=== PATIENT | male | born 1955 | race Caucasian/White ===

== ENCOUNTER 2022-09-20 16:56 | Inpatient (IN) | payer MEDICARE, SELFPAY ==
[2022-09-20 18:47] LABS: #Eosinphils 0.1 thou/uL (0.0-0.7); #Lymphocytes 0.8 thou/uL (1.20-3.40); #Monocytes 0.4 thou/uL (0.11-0.59); #Neutrophils 3.1 thou/uL (1.40-6.50); %Basophils 0.4 % (0.0-1.0); %Lymphocytes 18.1 % (21.0-51.0); %Monocytes 9.1 % (0.0-10.0); %Neutrophils 69.4 % (42.0-75.0); Hemoglobin 8.3 g/dL (14.0-18.0); Mean Corpuscular HGB CONC 30.6 g/dL (32.0-36.0); Mean Corpuscular Hemoglobin 20.6 pg (27.0-31.0); Mean Corpuscular Volume 67.1 fl (78.0-98.0); Mean Platelet Volume 10.5 fL (7.4-10.4); Platelet Count 230 10x3/uL (130-400); RBC Distribution Width 17.2 % (11.5-14.5); Red Blood Cell (RBC) Count 4.06 mill/uL (4.70-6.10); White Blood Cell (WBC) Count 4.5 10x3/uL (4.8-10.8)
[2022-09-20 19:06] LABS: Anisocytosis SLIGHT = 6-15 cells (100X) (0-5/hpf); Hypochromia SLIGHT = 6-15 cells (100X) (0-5/hpf); MDiff Complete? YES; Microcytosis SLIGHT = 6-15 cells (100X) (0-5/hpf); Ovalocytes SLIGHT = 2-5 cells (100X) (0-1/hpf); Platelet Morphology Comment Appears Adequate; Polychromasia SLIGHT = 2-3 cells (100X) (0-2/hpf); Target Cells SLIGHT = 2-5 cells (100X) (0-1/hpf)
[2022-09-20 19:12] LABS: ALT (SGPT) 8 U/L (8-55); AST (SGOT) 10 U/L (5-34); Albumin 3.1 g/dL (3.4-4.8); Alkaline Phosphatase 73 U/L (40-110); Anion Gap 11 mmol/L (10-20); BUN (Urea Nitrogen) 14 mg/dL (8.4-25.7); Bilirubin, Total 0.5 mg/dL (0.2-1.2); Calc. Creatinine Clearance 0 mL/min (70-130); Calcium 8.2 mg/dL (7.8-10.44); Carbon Dioxide 27 mmol/L (23-31); Chloride 104 mmol/L (98-107); Estimated GFR 54; Globulin 3.9 g/dL (2.4-3.5); Glucose 112 mg/dL (80-115); Potassium 4.5 mmol/L (3.5-5.1); Sodium 137 mmol/L (136-145)
[2022-09-20] MEDS ORDERED: Morphine 4 MG/ML VIAL ONE (21:26)
[2022-09-20] MEDS ORDERED: Ketorolac Tromethamine 30 MG/ML VIAL ONE (21:27)
[2022-09-20] MEDS ORDERED: Enoxaparin Sodium 100 MG/ML SYRINGE ONE (21:27)
[2022-09-20] MEDS ORDERED: Bisacodyl 5 MG TAB PO PRN (23:29)
[2022-09-20] MEDS ORDERED: Senokot S 8.6-50 MG TAB PO PRN (23:29)
[2022-09-20] MEDS ORDERED: Acetaminophen 325 MG TAB PO PRN (23:41)
[2022-09-21] MEDS ORDERED: Doxycycline 100 MG CAP PO SCH (00:45)
[2022-09-21] MEDS ORDERED: Sodium Chloride 0.9% 1,000 ML IV SCH (00:45)
[2022-09-21 03:56] VITALS: BMI 33.7
[2022-09-21] MEDS: Morphine 4 MG/ML VIAL SLOW IVP PRN ×3 (04:00→22:11)
[2022-09-21 04:16] LABS: #Eosinphils 0.2 thou/uL (0.0-0.7); #Monocytes 0.5 thou/uL (0.11-0.59); %Eosinophils 4.5 % (0.0-10.0); %Lymphocytes 26.7 % (21.0-51.0); %Monocytes 13.3 % (0.0-10.0); %Neutrophils 55.5 % (42.0-75.0); Hemoglobin 8.4 g/dL (14.0-18.0); Mean Corpuscular HGB CONC 29.6 g/dL (32.0-36.0); Mean Corpuscular Hemoglobin 20.2 pg (27.0-31.0); Mean Corpuscular Volume 68.4 fl (78.0-98.0); Mean Platelet Volume 11.3 fL (7.4-10.4); Platelet Count 208 10x3/uL (130-400); RBC Distribution Width 17.2 % (11.5-14.5); Red Blood Cell (RBC) Count 4.13 mill/uL (4.70-6.10); White Blood Cell (WBC) Count 3.6 10x3/uL (4.8-10.8)
[2022-09-21 04:27] LABS: ALT (SGPT) Less than 7 U/L (8-55); AST (SGOT) 11 U/L (5-34); Alkaline Phosphatase 62 U/L (40-110); Anion Gap 11 mmol/L (10-20); BUN (Urea Nitrogen) 13 mg/dL (8.4-25.7); Bilirubin, Total 0.4 mg/dL (0.2-1.2); Calc. Creatinine Clearance 78 mL/min (70-130); Calcium 7.9 mg/dL (7.8-10.44); Carbon Dioxide 25 mmol/L (23-31); Chloride 107 mmol/L (98-107); Estimated GFR 57; Globulin 4.1 g/dL (2.4-3.5); Glucose 91 mg/dL (80-115); Potassium 4.3 mmol/L (3.5-5.1); Protein, Total 7.1 g/dL (5.8-8.1); Sodium 139 mmol/L (136-145)
[2022-09-21] MEDS ORDERED: FLU VACC QS2022-23(65YR UP)/PF 240 MCG/0.7 ML SYRINGE IM ONE (09:00)
[2022-09-21] MEDS: Enoxaparin Sodium 120 MG/0.8 ML SYRINGE SC SCH ×2 (12:30→20:23)
[2022-09-21] MEDS: Doxycycline 100 MG CAP PO SCH ×2 (12:30→20:23)
[2022-09-21] MEDS: sulfaSALAzine 500 MG TAB PO SCH (12:30)
[2022-09-21] MEDS: cefTRIAXone\\ROCEPHIN 1 GM in Sodium Chloride 0.9% 100 ML IVPB SCH (15:42)
[2022-09-21] MEDS: Ferrous Sulfate 325 MG TAB PO SCH (15:43)
[2022-09-21] MEDS: HYDROcodone/Acetaminophen 10/325 mg Tablet PO PRN (20:24)
[2022-09-22 04:24] LABS: Anion Gap 12 mmol/L (10-20); BUN (Urea Nitrogen) 14 mg/dL (8.4-25.7); Calc. Creatinine Clearance 81 mL/min (70-130); Calcium 8.4 mg/dL (7.8-10.44); Carbon Dioxide 25 mmol/L (23-31); Chloride 104 mmol/L (98-107); Estimated GFR 60; Glucose 85 mg/dL (80-115); Potassium 4.2 mmol/L (3.5-5.1); Sodium 137 mmol/L (136-145)
[2022-09-22 04:28] LABS: #Eosinphils 0.2 thou/uL (0.0-0.7); #Lymphocytes 1.1 thou/uL (1.20-3.40); #Monocytes 0.3 thou/uL (0.11-0.59); #Neutrophils 1.9 thou/uL (1.40-6.50); %Basophils 0.5 % (0.0-1.0); %Lymphocytes 31.1 % (21.0-51.0); %Monocytes 9.8 % (0.0-10.0); %Neutrophils 53.7 % (42.0-75.0); Mean Corpuscular HGB CONC 29.6 g/dL (32.0-36.0); Mean Corpuscular Volume 67.5 fl (78.0-98.0); Mean Platelet Volume 11.4 fL (7.4-10.4); Platelet Count 223 10x3/uL (130-400); RBC Distribution Width 17.1 % (11.5-14.5); Red Blood Cell (RBC) Count 3.99 mill/uL (4.70-6.10); White Blood Cell (WBC) Count 3.5 10x3/uL (4.8-10.8)
[2022-09-22] MEDS: Enoxaparin Sodium 120 MG/0.8 ML SYRINGE SC SCH (10:41)
[2022-09-22] MEDS: Doxycycline 100 MG CAP PO SCH ×2 (10:41→21:00)
[2022-09-22] MEDS: sulfaSALAzine 500 MG TAB PO SCH (10:41)
[2022-09-22] MEDS: Ferrous Sulfate 325 MG TAB PO SCH ×2 (10:41→16:40)
[2022-09-22] MEDS: HYDROcodone/Acetaminophen 10/325 mg Tablet PO PRN (10:58)
[2022-09-22] MEDS: cefTRIAXone\\ROCEPHIN 1 GM in Sodium Chloride 0.9% 100 ML IVPB SCH (16:39)
[2022-09-22] MEDS: Apixaban 5 MG TAB PO SCH (21:00)
[2022-09-22] MEDS: Morphine 4 MG/ML VIAL SLOW IVP PRN (21:02)
[2022-09-23] MEDS: Morphine 4 MG/ML VIAL SLOW IVP PRN (02:20)
[2022-09-23 04:02] LABS: #Eosinphils 0.2 thou/uL (0.0-0.7); #Lymphocytes 0.9 thou/uL (1.20-3.40); #Monocytes 0.3 thou/uL (0.11-0.59); #Neutrophils 2.2 thou/uL (1.40-6.50); %Basophils 0.8 % (0.0-1.0); %Eosinophils 4.9 % (0.0-10.0); %Lymphocytes 24.2 % (21.0-51.0); %Monocytes 9.2 % (0.0-10.0); %Neutrophils 60.9 % (42.0-75.0); Hemoglobin 8.1 g/dL (14.0-18.0); Mean Corpuscular HGB CONC 31.3 g/dL (32.0-36.0); Mean Corpuscular Hemoglobin 20.9 pg (27.0-31.0); Mean Corpuscular Volume 66.8 fl (78.0-98.0); Mean Platelet Volume 10.6 fL (7.4-10.4); Platelet Count 238 10x3/uL (130-400); RBC Distribution Width 16.6 % (11.5-14.5); Red Blood Cell (RBC) Count 3.87 mill/uL (4.70-6.10); White Blood Cell (WBC) Count 3.5 10x3/uL (4.8-10.8)
[2022-09-23 04:21] LABS: Anion Gap 12 mmol/L (10-20); BUN (Urea Nitrogen) 13 mg/dL (8.4-25.7); Calc. Creatinine Clearance 92 mL/min (70-130); Calcium 8.7 mg/dL (7.8-10.44); Carbon Dioxide 26 mmol/L (23-31); Chloride 102 mmol/L (98-107); Estimated GFR 70; Glucose 86 mg/dL (80-115); Potassium 4.4 mmol/L (3.5-5.1); Sodium 136 mmol/L (136-145)
[2022-09-23] MEDS: Doxycycline 100 MG CAP PO SCH ×2 (09:20→20:40)
[2022-09-23] MEDS: Ferrous Sulfate 325 MG TAB PO SCH ×2 (09:20→16:00)
[2022-09-23] MEDS: Apixaban 5 MG TAB PO SCH ×2 (09:20→20:39)
[2022-09-23] MEDS: HYDROcodone/Acetaminophen 10/325 mg Tablet PO PRN ×3 (09:20→20:38)
[2022-09-23] MEDS: sulfaSALAzine 500 MG TAB PO SCH (09:35)
[2022-09-23] MEDS: cefTRIAXone\\ROCEPHIN 1 GM in Sodium Chloride 0.9% 100 ML IVPB SCH (15:54)
[2022-09-23] MEDS: Senokot S 8.6-50 MG TAB PO SCH (20:39)
[2022-09-24 05:09] LABS: #Eosinphils 0.2 thou/uL (0.0-0.7); #Lymphocytes 0.5 thou/uL (1.20-3.40); #Monocytes 0.3 thou/uL (0.11-0.59); #Neutrophils 3.4 thou/uL (1.40-6.50); %Basophils 0.4 % (0.0-1.0); %Eosinophils 3.4 % (0.0-10.0); %Lymphocytes 12.3 % (21.0-51.0); %Monocytes 7.6 % (0.0-10.0); %Neutrophils 76.3 % (42.0-75.0); Hemoglobin 8.3 g/dL (14.0-18.0); Mean Corpuscular HGB CONC 30.1 g/dL (32.0-36.0); Mean Corpuscular Hemoglobin 20.1 pg (27.0-31.0); Mean Corpuscular Volume 66.9 fl (78.0-98.0); Mean Platelet Volume 11.6 fL (7.4-10.4); Platelet Count 245 10x3/uL (130-400); RBC Distribution Width 16.9 % (11.5-14.5); Red Blood Cell (RBC) Count 4.14 mill/uL (4.70-6.10); White Blood Cell (WBC) Count 4.4 10x3/uL (4.8-10.8)
[2022-09-24 05:27] LABS: Anion Gap 12 mmol/L (10-20); BUN (Urea Nitrogen) 13 mg/dL (8.4-25.7); Calc. Creatinine Clearance 98 mL/min (70-130); Calcium 8.8 mg/dL (7.8-10.44); Carbon Dioxide 27 mmol/L (23-31); Chloride 100 mmol/L (98-107); Estimated GFR 75; Glucose 91 mg/dL (80-115); Magnesium 1.6 mg/dL (1.6-2.6); Potassium 4.7 mmol/L (3.5-5.1); Sodium 134 mmol/L (136-145)
[2022-09-24] MEDS: Doxycycline 100 MG CAP PO SCH ×2 (08:59→20:49)
[2022-09-24] MEDS: Senokot S 8.6-50 MG TAB PO SCH ×2 (08:59→20:49)
[2022-09-24] MEDS: sulfaSALAzine 500 MG TAB PO SCH (08:59)
[2022-09-24] MEDS: Ferrous Sulfate 325 MG TAB PO SCH ×2 (08:59→17:06)
[2022-09-24] MEDS: Apixaban 5 MG TAB PO SCH ×2 (08:59→20:49)
[2022-09-24] MEDS: HYDROcodone/Acetaminophen 10/325 mg Tablet PO PRN ×3 (09:00→20:48)
[2022-09-24] MEDS ORDERED: Magnesium 2 GM/50 ML(in water) 2 GM in Premix Bag 1 BAG IVPB SCH (09:45)
[2022-09-24] MEDS ORDERED: Polyethylene Glycol 3350 17 GM Packet PO SCH (09:45)
[2022-09-24] MEDS: cefTRIAXone\\ROCEPHIN 1 GM in Sodium Chloride 0.9% 100 ML IVPB SCH (14:37)
[2022-09-25 05:20] LABS: Anion Gap 11 mmol/L (10-20); BUN (Urea Nitrogen) 15 mg/dL (8.4-25.7); Calc. Creatinine Clearance 84 mL/min (70-130); Carbon Dioxide 27 mmol/L (23-31); Chloride 99 mmol/L (98-107); Estimated GFR 64; Glucose 82 mg/dL (80-115); Potassium 4.6 mmol/L (3.5-5.1); Sodium 132 mmol/L (136-145)
[2022-09-25] MEDS: Doxycycline 100 MG CAP PO SCH ×2 (10:12→21:04)
[2022-09-25] MEDS: Polyethylene Glycol 3350 17 GM Packet PO SCH (10:12)
[2022-09-25] MEDS: Apixaban 5 MG TAB PO SCH ×2 (10:12→21:03)
[2022-09-25] MEDS: Ferrous Sulfate 325 MG TAB PO SCH ×2 (10:12→16:04)
[2022-09-25] MEDS: Senokot S 8.6-50 MG TAB PO SCH ×2 (10:12→21:03)
[2022-09-25] MEDS: HYDROcodone/Acetaminophen 10/325 mg Tablet PO PRN ×2 (10:15→21:04)
[2022-09-25] MEDS: sulfaSALAzine 500 MG TAB PO SCH (10:20)
[2022-09-25] MEDS: cefTRIAXone\\ROCEPHIN 1 GM in Sodium Chloride 0.9% 100 ML IVPB SCH (16:04)
[2022-09-26] MEDS: Polyethylene Glycol 3350 17 GM Packet PO SCH (08:39)
[2022-09-26] MEDS: Doxycycline 100 MG CAP PO SCH ×2 (08:40→20:25)
[2022-09-26] MEDS: Senokot S 8.6-50 MG TAB PO SCH ×2 (08:40→20:26)
[2022-09-26] MEDS: Ferrous Sulfate 325 MG TAB PO SCH ×2 (08:40→16:59)
[2022-09-26] MEDS: Apixaban 5 MG TAB PO SCH ×2 (08:40→20:26)
[2022-09-26] MEDS: HYDROcodone/Acetaminophen 10/325 mg Tablet PO PRN ×3 (08:45→20:25)
[2022-09-26] MEDS: sulfaSALAzine 500 MG TAB PO SCH (11:48)
[2022-09-26 14:14] LABS: #Eosinphils 0.1 thou/uL (0.0-0.7); #Lymphocytes 0.8 thou/uL (1.20-3.40); #Monocytes 0.4 thou/uL (0.11-0.59); #Neutrophils 2.5 thou/uL (1.40-6.50); %Basophils 0.1 % (0.0-1.0); %Eosinophils 3.3 % (0.0-10.0); %Lymphocytes 21.3 % (21.0-51.0); %Monocytes 10.8 % (0.0-10.0); %Neutrophils 64.4 % (42.0-75.0); Hemoglobin 8.1 g/dL (14.0-18.0); Mean Corpuscular HGB CONC 30.3 g/dL (32.0-36.0); Mean Corpuscular Hemoglobin 20.1 pg (27.0-31.0); Mean Corpuscular Volume 66.5 fl (78.0-98.0); Mean Platelet Volume 11.1 fL (7.4-10.4); Platelet Count 271 10x3/uL (130-400); RBC Distribution Width 16.7 % (11.5-14.5); Red Blood Cell (RBC) Count 4.04 mill/uL (4.70-6.10); White Blood Cell (WBC) Count 3.9 10x3/uL (4.8-10.8)
[2022-09-26 14:25] LABS: Anion Gap 14 mmol/L (10-20); BUN (Urea Nitrogen) 22 mg/dL (8.4-25.7); Calc. Creatinine Clearance 80 mL/min (70-130); Carbon Dioxide 26 mmol/L (23-31); Chloride 96 mmol/L (98-107); Estimated GFR 59; Glucose 93 mg/dL (80-115); Potassium 4.8 mmol/L (3.5-5.1); Sodium 131 mmol/L (136-145)
[2022-09-26] MEDS: cefTRIAXone\\ROCEPHIN 1 GM in Sodium Chloride 0.9% 100 ML IVPB SCH (16:59)
[2022-09-27] MEDS: HYDROcodone/Acetaminophen 10/325 mg Tablet PO PRN ×3 (00:27→21:36)
[2022-09-27] MEDS: Senokot S 8.6-50 MG TAB PO SCH ×2 (09:52→21:34)
[2022-09-27] MEDS: Polyethylene Glycol 3350 17 GM Packet PO SCH (09:52)
[2022-09-27] MEDS: sulfaSALAzine 500 MG TAB PO SCH (09:52)
[2022-09-27] MEDS: Apixaban 5 MG TAB PO SCH ×2 (09:52→21:34)
[2022-09-27] MEDS: Doxycycline 100 MG CAP PO SCH ×2 (09:52→21:34)
[2022-09-27] MEDS: Ferrous Sulfate 325 MG TAB PO SCH ×2 (09:52→16:55)
[2022-09-27 12:42] LABS: #Eosinphils 0.2 thou/uL (0.0-0.7); #Monocytes 0.5 thou/uL (0.11-0.59); #Neutrophils 2.9 thou/uL (1.40-6.50); %Basophils 0.6 % (0.0-1.0); %Lymphocytes 21.7 % (21.0-51.0); %Monocytes 9.8 % (0.0-10.0); %Neutrophils 63.9 % (42.0-75.0); Hemoglobin 9.4 g/dL (14.0-18.0); Mean Corpuscular HGB CONC 31.4 g/dL (32.0-36.0); Mean Corpuscular Hemoglobin 20.6 pg (27.0-31.0); Mean Corpuscular Volume 65.6 fl (78.0-98.0); Mean Platelet Volume 11.2 fL (7.4-10.4); Platelet Count 304 10x3/uL (130-400); RBC Distribution Width 16.8 % (11.5-14.5); Red Blood Cell (RBC) Count 4.55 mill/uL (4.70-6.10); White Blood Cell (WBC) Count 4.6 10x3/uL (4.8-10.8)
[2022-09-27 12:57] LABS: Anion Gap 15 mmol/L (10-20); BUN (Urea Nitrogen) 24 mg/dL (8.4-25.7); Calc. Creatinine Clearance 76 mL/min (70-130); Calcium 9.2 mg/dL (7.8-10.44); Carbon Dioxide 25 mmol/L (23-31); Chloride 97 mmol/L (98-107); Estimated GFR 57; Glucose 103 mg/dL (80-115); Potassium 4.9 mmol/L (3.5-5.1); Sodium 132 mmol/L (136-145)
[2022-09-27] MEDS: cefTRIAXone\\ROCEPHIN 1 GM in Sodium Chloride 0.9% 100 ML IVPB SCH (16:01)
[2022-09-28] MEDS: Apixaban 5 MG TAB PO SCH ×2 (09:05→21:28)
[2022-09-28] MEDS: Senokot S 8.6-50 MG TAB PO SCH ×2 (09:05→21:29)
[2022-09-28] MEDS: Ferrous Sulfate 325 MG TAB PO SCH ×2 (09:05→16:27)
[2022-09-28] MEDS: sulfaSALAzine 500 MG TAB PO SCH (09:05)
[2022-09-28] MEDS: HYDROcodone/Acetaminophen 10/325 mg Tablet PO PRN ×2 (09:06→21:29)
[2022-09-28] MEDS: Polyethylene Glycol 3350 17 GM Packet PO SCH (09:06)
[2022-09-28] MEDS: Doxycycline 100 MG CAP PO SCH ×2 (09:06→21:29)
[2022-09-28 10:37] LABS: Anion Gap 17 mmol/L (10-20); BUN (Urea Nitrogen) 29 mg/dL (8.4-25.7); Calc. Creatinine Clearance 68 mL/min (70-130); Calcium 9.1 mg/dL (7.8-10.44); Carbon Dioxide 23 mmol/L (23-31); Chloride 97 mmol/L (98-107); Estimated GFR 50; Glucose 119 mg/dL (80-115); Potassium 5.1 mmol/L (3.5-5.1); Sodium 132 mmol/L (136-145)
[2022-09-28] MEDS: cefTRIAXone\\ROCEPHIN 1 GM in Sodium Chloride 0.9% 100 ML IVPB SCH (16:27)
[2022-09-29 07:15] LABS: #Eosinphils 0.1 thou/uL (0.0-0.7); #Lymphocytes 1.1 thou/uL (1.20-3.40); #Monocytes 0.5 thou/uL (0.11-0.59); #Neutrophils 2.7 thou/uL (1.40-6.50); %Basophils 0.4 % (0.0-1.0); %Eosinophils 3.2 % (0.0-10.0); %Lymphocytes 24.3 % (21.0-51.0); %Neutrophils 60.1 % (42.0-75.0); Hemoglobin 8.8 g/dL (14.0-18.0); Mean Corpuscular HGB CONC 31.2 g/dL (32.0-36.0); Mean Corpuscular Hemoglobin 20.5 pg (27.0-31.0); Mean Corpuscular Volume 65.7 fl (78.0-98.0); Mean Platelet Volume 10.4 fL (7.4-10.4); Platelet Count 316 10x3/uL (130-400); RBC Distribution Width 16.8 % (11.5-14.5); Red Blood Cell (RBC) Count 4.28 mill/uL (4.70-6.10); White Blood Cell (WBC) Count 4.4 10x3/uL (4.8-10.8)
[2022-09-29 07:41] LABS: Anion Gap 13 mmol/L (10-20); BUN (Urea Nitrogen) 25 mg/dL (8.4-25.7); Calc. Creatinine Clearance 81 mL/min (70-130); Calcium 9.2 mg/dL (7.8-10.44); Carbon Dioxide 27 mmol/L (23-31); Chloride 100 mmol/L (98-107); Estimated GFR 62; Glucose 89 mg/dL (80-115); Potassium 4.5 mmol/L (3.5-5.1); Sodium 135 mmol/L (136-145)
[2022-09-29] MEDS: Senokot S 8.6-50 MG TAB PO SCH ×2 (07:55→20:43)
[2022-09-29] MEDS: Ferrous Sulfate 325 MG TAB PO SCH ×2 (07:55→16:14)
[2022-09-29] MEDS: Polyethylene Glycol 3350 17 GM Packet PO SCH (07:55)
[2022-09-29] MEDS: sulfaSALAzine 500 MG TAB PO SCH (07:55)
[2022-09-29] MEDS: Apixaban 5 MG TAB PO SCH ×2 (07:55→20:42)
[2022-09-29] MEDS: HYDROcodone/Acetaminophen 10/325 mg Tablet PO PRN ×4 (08:27→20:43)
[2022-09-29] MEDS: Doxycycline 100 MG CAP PO SCH ×2 (09:59→20:43)
[2022-09-29] MEDS: cefTRIAXone\\ROCEPHIN 1 GM in Sodium Chloride 0.9% 100 ML IVPB SCH (13:07)
[2022-09-30 07:45] LABS: #Eosinphils 0.2 thou/uL (0.0-0.7); #Monocytes 0.5 thou/uL (0.11-0.59); #Neutrophils 3.2 thou/uL (1.40-6.50); %Basophils 0.3 % (0.0-1.0); %Eosinophils 3.9 % (0.0-10.0); %Lymphocytes 21.1 % (21.0-51.0); %Monocytes 9.2 % (0.0-10.0); %Neutrophils 65.5 % (42.0-75.0); Hemoglobin 8.6 g/dL (14.0-18.0); Mean Corpuscular HGB CONC 29.5 g/dL (32.0-36.0); Mean Corpuscular Hemoglobin 19.6 pg (27.0-31.0); Mean Corpuscular Volume 66.4 fl (78.0-98.0); Mean Platelet Volume 10.6 fL (7.4-10.4); Platelet Count 333 10x3/uL (130-400); RBC Distribution Width 16.7 % (11.5-14.5); Red Blood Cell (RBC) Count 4.37 mill/uL (4.70-6.10); White Blood Cell (WBC) Count 4.9 10x3/uL (4.8-10.8)
[2022-09-30 07:54] LABS: Anion Gap 15 mmol/L (10-20); BUN (Urea Nitrogen) 27 mg/dL (8.4-25.7); Calc. Creatinine Clearance 82 mL/min (70-130); Calcium 9.3 mg/dL (7.8-10.44); Carbon Dioxide 25 mmol/L (23-31); Chloride 99 mmol/L (98-107); Estimated GFR 62; Glucose 98 mg/dL (80-115); Potassium 4.8 mmol/L (3.5-5.1); Sodium 134 mmol/L (136-145)
[2022-09-30] MEDS: Apixaban 5 MG TAB PO SCH ×2 (08:48→21:10)
[2022-09-30] MEDS: Doxycycline 100 MG CAP PO SCH ×2 (08:48→21:10)
[2022-09-30] MEDS: Senokot S 8.6-50 MG TAB PO SCH ×2 (08:48→21:10)
[2022-09-30] MEDS: Ferrous Sulfate 325 MG TAB PO SCH ×2 (08:48→16:08)
[2022-09-30] MEDS: sulfaSALAzine 500 MG TAB PO SCH (08:48)
[2022-09-30] MEDS: Polyethylene Glycol 3350 17 GM Packet PO SCH (08:48)
[2022-09-30] MEDS: HYDROcodone/Acetaminophen 10/325 mg Tablet PO PRN ×4 (08:53→21:20)
[2022-09-30] MEDS: cefTRIAXone\\ROCEPHIN 1 GM in Sodium Chloride 0.9% 100 ML IVPB SCH (14:47)
[2022-10-01] MEDS: Polyethylene Glycol 3350 17 GM Packet PO SCH (09:24)
[2022-10-01] MEDS: Doxycycline 100 MG CAP PO SCH ×2 (09:24→20:59)
[2022-10-01] MEDS: Apixaban 5 MG TAB PO SCH ×2 (09:24→20:59)
[2022-10-01] MEDS: Senokot S 8.6-50 MG TAB PO SCH ×2 (09:24→20:59)
[2022-10-01] MEDS: Ferrous Sulfate 325 MG TAB PO SCH ×2 (09:24→16:31)
[2022-10-01] MEDS: sulfaSALAzine 500 MG TAB PO SCH (09:24)
[2022-10-01] MEDS: HYDROcodone/Acetaminophen 10/325 mg Tablet PO PRN ×2 (16:31→21:02)
[2022-10-02] MEDS: Polyethylene Glycol 3350 17 GM Packet PO SCH (08:53)
[2022-10-02] MEDS: Ferrous Sulfate 325 MG TAB PO SCH ×2 (08:54→17:34)
[2022-10-02] MEDS: Senokot S 8.6-50 MG TAB PO SCH ×2 (08:54→20:36)
[2022-10-02] MEDS: sulfaSALAzine 500 MG TAB PO SCH (08:54)
[2022-10-02] MEDS: Doxycycline 100 MG CAP PO SCH ×2 (08:54→20:36)
[2022-10-02] MEDS: Apixaban 5 MG TAB PO SCH ×2 (08:54→20:37)
[2022-10-02] MEDS: HYDROcodone/Acetaminophen 10/325 mg Tablet PO PRN ×2 (15:35→22:00)
[2022-10-03] MEDS: sulfaSALAzine 500 MG TAB PO SCH (08:45)
[2022-10-03] MEDS: Apixaban 5 MG TAB PO SCH (08:45)
[2022-10-03] MEDS: Senokot S 8.6-50 MG TAB PO SCH (08:45)
[2022-10-03] MEDS: Polyethylene Glycol 3350 17 GM Packet PO SCH (08:46)
[2022-10-03] MEDS: Ferrous Sulfate 325 MG TAB PO SCH (08:46)
[2022-10-03] MEDS: Doxycycline 100 MG CAP PO SCH (08:46)
[2022-10-03] MEDS: HYDROcodone/Acetaminophen 10/325 mg Tablet PO PRN (08:49)
[2022-10-03 14:39] VITALS: BP 97/62; TEMP 97.7
== END 2022-10-03 16:04 | DRG 300 ==
LOC: ERS 16:56 → 2NO 23:36 → T4-B 09-27 15:39
PROVIDERS: ADMIT Family Medicine; ATTEND Family Medicine
DX: T81.72XA Complication of vein following a procedure, not elsewhere classified, initial encounter (principal); E87.1 Hypo-osmolality and hyponatremia; T81.41XA Infection following a procedure, superficial incisional surgical site, initial encounter; I82.411 Acute embolism and thrombosis of right femoral vein; L03.115 Cellulitis of right lower limb; N17.9 Acute kidney failure, unspecified; I82.441 Acute embolism and thrombosis of right tibial vein; N18.2 Chronic kidney disease, stage 2 (mild); D50.9 Iron deficiency anemia, unspecified; M06.9 Rheumatoid arthritis, unspecified; Z96.641 Presence of right artificial hip joint; G47.33 Obstructive sleep apnea (adult) (pediatric); Y83.8 Other surgical procedures as the cause of abnormal reaction of the patient, or of later complication, without mention of misadventure at the time of the procedure; E83.42 Hypomagnesemia; K59.00 Constipation, unspecified; Z99.89 Dependence on other enabling machines and devices; Z79.899 Other long term (current) drug therapy; Z98.890 Other specified postprocedural states
CPT/HCPCS: 36415; 80048; 80053; 83605; 83735; 85025; 85652; 86140; 87040; 87811; 93005; 93306; 96372; 96374; 96375; J0696; J1650; J1885; J2270; J3475; J3490; J7050; U0003; U0005